=== PATIENT | male | born 1980 | race Caucasian/White ===

== ENCOUNTER 2019-03-28 13:07 | Emergency (ER) | payer SELFPAY ==
[~2019-03-28] VITALS: Ht 167.6 cm; Wt 73.0 kg
[~2019-03-28 13:07] MED LIST: FAMO20TA18 PO; MAG-19 PO
[2019-03-28 13:12] VITALS: BP 147/85; PULSE 88; RESP 16; Ht 167.6 cm; Wt 73.0 kg
[2019-03-28] MEDS ORDERED: DICYCLOMINE 20 MG INJ IM ONE (14:30)
[2019-03-28] MEDS ORDERED: LIDOCAINE/MYLANTA 40 ML BTL PO ONE (14:30)
== END 2019-03-28 16:15 | disposition home or self-care (01) ==
LOC: FTE 13:07
DX: K21.9 Gastro-esophageal reflux disease without esophagitis (principal)
CPT/HCPCS: 96372; 99284; J0500